=== PATIENT | male | born 1970 | race Caucasian/White ===

== ENCOUNTER 2019-06-16 14:59 | Inpatient (IN) | payer BC ==
[~2019-06-16] VITALS: Ht 162.6 cm; Wt 104.1 kg
[2019-06-16] MEDS ORDERED: NORVASC 2.5 MG2.5 M1 PO (16:10)
[2019-06-16] MEDS ORDERED: FLEXERIL PO (16:12)
[2019-06-16] MEDS ORDERED: DULCOLAX STOOL100 M1 PO (16:13)
[2019-06-16] MEDS ORDERED: ENOXAPARIN40 MG/0.1 SUBQ (16:15)
[2019-06-16] MEDS ORDERED: NEURONTIN 300M300 M2 PO (16:16)
[2019-06-16] MEDS ORDERED: NORCO 5-325 TA1 EAC1 PO (16:18)
[2019-06-16] MEDS ORDERED: GENTLE LAXATIVE5 MG PO (16:53)
[2019-06-16] MEDS ORDERED: LAXATIVE SUPPOS10 MG RECTAL (16:55)
[2019-06-16] MEDS ORDERED: MIRALAX119 GM PO (16:58)
[2019-06-16] MEDS ORDERED: MAG-AL LIQUID30 ML PO (16:58)
[2019-06-16 17:15] VITALS: BP 171/79
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
[2019-06-16 20:10] VITALS: BP 133/86
--- NOTE | 2019-06-17 02:14 | NUR ---
ASSUMED CARE @ 1939-06/16-WEDNESDAY.AWAKE IN BED W/ HOB UP 90 DEGREES[address]CERVICAL CO[address]AR IN PLACE.WATCHING TV.URINALW/IN REACH.SPINAL PRECAUTIONS OBSERVED. PRN FLEXERIL GIVEN W/ PAin med @ 2109.ON HOURLY ROUNDS.FUNERAL DIRECTOR DOING ODD HOUR ROUNDS.
[2019-06-17 04:32] LABS: CALCIUM 8.3 mg/dL (8.5-10.1); CREATININE 0.9 mg/dL (0.6-1.3); POTASSIUM 4.4 mmol/L (3.5-5.1)
[2019-06-17 04:33] LABS: HEMATOCRIT 36.8 % (42.0-52.0); HEMOGLOBIN 12.4 gm/dL (14.0-18.0); MCH 30.3 pg (26.0-34.0); MCHC 33.6 g/dL (28.0-37.0); MPV 8.4 fl. (7.2-11.1); RBC 4.09 mil/uL (4.50-6.00); RDW-CV 13.6 % (10.5-14.5)
--- NOTE | 2019-06-17 05:44 | NUR ---
SLEEPING SINCE 0 & SLEPT GOOD ALL NIGHT.USED URINAL X2.CALLS TO EMPTY URINAL.SEE 2ND PAIN MANAGEMENT @ 0244.LUE UP ON A PILLOW FOR PAIN LUE. REQUESTED VANILLA PUDDING & STRAWBERRY JELLO @ 0250 & ATE ALL @ 0250.WANTS RIGHT LEG SCD & PUT ON @ 0310.
[2019-06-17 08:00] VITALS: BP 136/79
--- NOTE | 2019-06-17 17:16 | NUR ---
ALERT AND ORIENTED X4. UP WITH 1 ASSIST, GAIT BELT AND WALKER. USES PROSTHESIS ON LEFT LOWER LEG. ONLY TOE TOUCH WEIGHTBEARING TO RIGHT LOWER LEG. DRESSING OVER RIGHT UPPER LEG INCISIONS CLEAN DRY AND INTACT. REMAINS ON SPINAL PRECAUTIONS. HAS NECK BRACE ON AT ALL TIMES. HOB ELEVATED GREATER THAN 30 DEGREES WHILE IN BED. PATIENT INSTRUCTED ON SPINAL PRECAUTIONS. INSTRUCTED NO TWISTING/TURNING, LIFTING ARMS ABOVE SHOULDER OR LIFTING ANYTHING GREATER THAN 5 POUNDS. PATIENT C/O ALOT LEFT SHOULDER PAIN. DR NOTIFIED AND XRAY ORDERED. CALL LIGHT WITHIN REACH. FALL PRECAUTIONS IN PLACE, BED ALARM AND CHAIR ALARM USED.
[2019-06-17 19:30] VITALS: BP 152/80
--- NOTE | 2019-06-18 01:09 | NUR ---
ASSUMED CARE @ 1909-06/17-SAT.AWAKE IN BED W/ HOB UP 90 DEGREES W/ CERVICAL COLLAR ONNIECE STAYING ALL NIGHT.BED ALARM PUT ON @ 1909.REFUSED RIGHT LEG SCD THIS EVENING.PRN FLEXERIL GIVEN W/ PAIN MEDS @ 2140.URINAL W/IN REACH.ON HOURLY ROUNDS.PHYSICAL SCIENCE PROFESSOR DOING ODD HOUR ROUNDS,
--- NOTE | 2019-06-18 05:46 | NUR ---
SLEPT LATE @ 49-06/18-WEDNESDAY & SLEEPING GOOD ALL NIGHT.USED URINAL X1 ONLY. SEE 2ND PAIN MANAGEMENT W/ PRN MATEUSZL @ 3784.TOOK ALL VANILLA PUDDING & STRAWBERRY JELLO HS SNACKS.
[2019-06-18 07:59] VITALS: BP 132/79
--- NOTE | 2019-06-18 17:19 | NUR ---
ALERT AND ORIENTED X4. UP WITH 1 ASSIST, GAIT BELT, PROSTHESIS AND WALKER. TOE TOUCH WEIGHTBEARING ON RIGHT LOWER EXTREMITY AND FULL WEIGHT BEARING WITH PROSTHESIS ON LEFT. USEING PO PAIN MEDICATION TO HELP WITH PAIN IN NECK AND RIGHT LEG. NECK BRACE ON AT ALL TIMES. NO C/O NUMBNESS OR TINGLING. USES CALL LIGHT WITHIN REACH. FALL PRECAUTIONS IN PLACE, BED AND CHAIR ALARM USED.
[2019-06-18 19:30] VITALS: BP 169/87
--- NOTE | 2019-06-19 00:40 | NUR ---
ASSUMED CARE @ 1914-06/18-WEDNESDAY.AWAKE IN BED W/CERVICAL COLLAR IN PLACE.HOB UP 90 DEGREES.SON & HIS GIRLFRIEND VISITING.WATCHING BALL GAME.BED ALARTM PUT ON @ 1914.SEE PAIN MANAGEMENT W/ PRN FLEXERIL @ 2132 FOR LEFT SHOULDER PAIN.ICE PACK APPLIED TO LEFT SHOULDER @ 2244.URINAL W/IN REACH.ON HOURLY ROUNDS.MANAGER ONLINE DOING ODD HOUR ROUNDS.
--- NOTE | 2019-06-19 05:17 | NUR ---
SLEPT LATE @ 0045 & SLEEPING GOOD ALL NIGHT.USED URINAL X1 ONLY.NURSE EMPTIES URINAL ONLY DURING NIGHT.TOOK ALL VANILLA & JUAN JOSE.PUDDINGS & TURKEY SANDWICH HS SNACKS.
[2019-06-19 07:57] VITALS: BP 147/82
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
--- NOTE | 2019-06-19 17:54 | NUR ---
SW attempted to meet pt today but pt was with therapy whenever SW was available. Pt lives in apt alone but has girlfriend support. SW to attempt to meet again tomorrow to provide welcome folder and irf frankie consent. SW to continue to follow to assist with safe dc planning.
--- NOTE | 2019-06-19 18:26 | NUR ---
ALERT AND ORIENTED X4. UP WITH 1 ASSIST, GAIT BELT, LEFT LEG PROSTHESIS AND WALKER. HAS DRY DRESSINGS OVER RIGHT HIP INCISIONS. DURABOND OVER NECK INCISION. WEARING NECK BRACE AT ALL TIMES. GETTING SOME PAIN RELIEF WITH ALTERATING PO PAIN MEDICATIONS. SET OFF CHAIR ALARM TODAY X2, DID NOT USE CALL LIGHT AND TRANSFERED SELF TO BED. PATIENT REMINDED TO USE CALL LIGHT FOR HELP WITH TRANSFERS. FALL PRECAUTIONS IN PLACE, BED ALARM AND CHAIR ALARMS.
[2019-06-19 19:10] VITALS: BP 137/76
--- NOTE | 2019-06-19 21:28 | NUR ---
ASSUMED CARE AT 1930. PATIENT RESTING IN BED. CERVICAL COLLAR ON AT ALL TIMES. INCISION TO RIGHT NECK, AND DRESSINGS TO RIGHT HIP C/D/I. VOIDS PER TOILET. HAD BM THIS SHIFT. TAKES PILLS WHOLE WITH WATER. MEDICATED FOR LT SHOULDER PAIN. LT ARM ELEVATED ON PILLOW TO SUPPORT ARM. SPINAL PRECAUTIONS MAINTAINED. TTWB TO RLE, FWB TO LLE WITH PROTHESIS. HAD TURKEY SANDWICH/BOX LUNCH FOR SNACK. TURNS SELF IN BED. HOURLY ROUNDS CONTINUE. BED ALARM ON. CALL LITE IN REACH.
--- NOTE | 2019-06-20 05:28 | NUR ---
SLEPT MOST OF THE NIGHT. VOIDED PER URINAL. ASPEN COLLAR ON AT ALL TIMES. HOB ELEVATED AT LEAST 30 DEGREES. NO C/O PAIN. LT ARM SUPPORTED ON PILLOW ALL NIGHT. TAKES PILLS WITH WATER. TURNS SELF. HOURLY ROUNDS CONTINUE. BED ALARM ON. CALL LITE IN REACH.
[2019-06-20 08:00] VITALS: BP 131/76
--- NOTE | 2019-06-20 15:52 | NUR ---
ASSUMMED CARE OF PT AT 0730, PT ALERT AND ORIENTED, PT C/O NECK PAIN, RIGHT SHOULDER AND ARM PAIN, MEDICATED PER ORDER, ICE APPLIED, C COLLAR ON AT ALL TIMES, SPINAL PRECAUTIONS MAINTAINED, TRANSFERS WITH SBA, GB STAND PIVOT INTO CHAIR, MAINTAINS TTWB UNLESS TRANSFERING PER ORDER, DRESSING CHANGED TO INCISIONS ON RIGHT UPPER LEG, PT HAS OCCASIONAL LOOSE COUGH, ENCOURAGED TO USE IS AND TO DEEP BREATHE, VOIDS PER URINAL, TAKES FOOD AND FLUIDS WELL, PARTCIPATED IN ALL THERAPIES, HAD LUNCH IN DININGROOM, HOURLY ROUNDING COMPLETED, ASSESSMENT COMPLETE, WILL CONTINUE TO MONITOR.
[2019-06-20 19:30] VITALS: BP 139/82
--- NOTE | 2019-06-20 20:30 | NUR ---
RESTING IN BED AND WATCHING TV. HAS LOOSE COUGH. STATES COUGHS UP CLEAR SPUTUM AT TIMES. DENIES DISCOMFORT. ASPEN COLLAR IN PLACE. CALL LIGHT WITHIN REACH.
--- NOTE | 2019-06-21 05:40 | NUR ---
GAVE PAIN MEDICATION AT 2212 FOR COMPLAINT OF PAIN MEDICATION IN NECK AND LEFT SHOULDER WITH RELIEF. USED URINAL X 2 DURING THE NIGHT. HOURLY ROUNDING IN PROGRESS.
[2019-06-21 08:07] VITALS: BP 151/84
--- NOTE | 2019-06-21 16:53 | NUR ---
WATSON and Dr Ortiz met with pt to review team conference summary and plan for pt to remain on rehab unit at least another week with plan to reteam next Wednesday. SW to discuss dc planning with pt family as well and SW will continue to follow to assist with safe dc planning.
[2019-06-21 19:46] VITALS: BP 136/50
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
--- NOTE | 2019-06-22 06:01 | NUR ---
SLEPT MOST OF THE NIGHT. VOIDED PER URINAL TWICE. REPOSITIONS SELF. HOB ELEVATED. WORE ASPEN COLLAR ALL NIGHT. NO FURTHER C/O PAIN. BILAT ARMS SUPPORTED WITH PILLOWS.
[2019-06-22 08:00] VITALS: BP 138/91
--- NOTE | 2019-06-22 16:04 | NUR ---
ASSUMMED CARE OF PT AT 0730, PT ALERT AND ORIENTED, PT COMPLAINS OF PAIN IN BILATERAL SHOULDERS AND NECK GREATER IN LEFT SHOULDER, MEDICATED THIS AM BUT PT DOES NOT WANT TO TAKE FURTHER PAIN MEDICATION, AFRAID HE WILL BECOME DEPENDENT ON IT, DOES NOT WANT TO USE WALKER WITH OT DUE TO PAIN, AND STATES HE GETS SLEEPY WHEN TAKES MUSCLE RELAXANT, PT DOES DRIFT OFF TO SLEEP EASILY THRU OUT SHIFT, DISCUSSED WITH PHYSICIAN AND SHE TALKED WITH HIM ABOUT HIS PAIN AND MEDICATIONS, PT AGREEABLE TO TAKE PAIN MEDS THIS PM, ICE PACK TO LEFT SHOULDER THRU OUT SHIFT, TAKING FOOD AND FLUIDS WELL, VOIDS PER URINAL, PT TRANSFERS WITH ASSIST OF 1, STAND PIVOT WITH PROSTHETIC, DRESSING CHANGED TO UPPER 3 INCISIONS, REDNESS NOTED AROUND INCISION SITE OF MIDDLE 2 INCISIONS, MAINTAINS WEIGHT BEAR STATUS, PARTICIPATED IN ALL THERAPIES, HOURLY ROUNDING COMPLETED, ASSESSMENT COMPLETE, WILL CONTINUE TO MONITOR.
[2019-06-22 20:00] VITALS: BP 132/64
[2019-06-23 05:04] LABS: HEMATOCRIT 35.9 % (42.0-52.0); HEMOGLOBIN 12.1 gm/dL (14.0-18.0); MCHC 33.7 g/dL (28.0-37.0); MPV 8.6 fl. (7.2-11.1); RBC 4.03 mil/uL (4.50-6.00); RDW-CV 13.5 % (10.5-14.5); WBC 12.1 thou/uL (4.0-11.0)
--- NOTE | 2019-06-23 05:09 | NUR ---
ASSUMED CARES AT 1920. ALERT AND ORIENTED. PLEASANT. ASPEN COLLAR ON AT ALL TIMES. C/O PAIN TO LEFT SHOULDER. PAIN MEDS GIVEN NEEDED. ICE PACK GIVEN. USED URINAL AND NURSING EMPTIED. SLEPT OFF AND ON MOST OF THE NIGHT. CALL LIGHT IN REACH AND BED ALARM ON.
[2019-06-23 05:19] LABS: CALCIUM 8.9 mg/dL (8.5-10.1); POTASSIUM 4.5 mmol/L (3.5-5.1)
[2019-06-23 07:38] VITALS: BP 146/83
--- NOTE | 2019-06-23 18:31 | NUR ---
ALERT AND ORIENTED X4. UP WITH STAND BY ASSIST, GAIT BELT, WALKER AND PROSTHESIS TO LEFT LOWER LEG. REMAINS TOE TOUCH WEIGHTBEARING TO RIGHT LOWER LEG. DRESSINGS X2 DRY AND INTACT OVER RIGHT HIP INCISION. USING PO PAIN MEDICATION AND PAIN PATCH TO HELP WITH PAIN. CT SCAN DONE OF LEFT SHOULDER. AWAITING RESULTS. CALL LIGHT WITHIN REACH. FALL PRECAUTIONS IN PLACE WITH CHAIR ALARM AND BED ALARM.
[2019-06-23 20:09] VITALS: BP 132/84
--- NOTE | 2019-06-24 05:07 | NUR ---
ASSUMED CARES AT 1920. ALERT AND ORIENTED. PLEASANT. C/O PAIN TO BACK OF NECK AND LEFT SHOULDER. PAIN MEDS GIVEN. ASPEN COLLAR ON. DRESSINGS TO RIGHT LEG INTACT. USED URINAL. PRODUCTIVE COUGH. ENCOURAGED PT TO USE INCENTIVE SPIROMETER AND TO DEEP BREATHING. SLEPT OFF AND ON. CALL LIGHT IN REACH AND BED ALARM ON.
[2019-06-24 08:00] VITALS: BP 129/89
--- NOTE | 2019-06-24 18:00 | NUR ---
AM ASSESSMENT AND VITAL SIGNS COMPLETED DOCUMENTED. PT TRANSFERS STAND BY ASSIST WITH A WALKER AND HIS PROSTHESIS. ASPEN COLLAR IN PLACE AT ALL TIMES. PT REQUIRED PAIN MEDICATION TWICE THIS SHIFT FOR NECK AND SHOULDER PAIN. FALL PRECAUTIONS AND HOURLY ROUNDING CONTINUE.
[2019-06-24 19:50] VITALS: BP 132/83
--- NOTE | 2019-06-24 20:00 | NUR ---
SITTING UP IN BED WATCHING TV. PAIN MEDICATION GIVEN FOR COMPLAINT OF NECK AND LEFT SHOULDER PAIN RATED "7". TOOK MEDICATIONS WHOLE WITH WATER. TRANSFERRED FROM BED TO WHEELCHAIR WITH SBA AFTER PUTTING PROSTESIS ON, STAND, PIVOT. WHEELED SELF TO THE BATHROOM. USED GRAB BAR TO AID IN TRANSFER FROM WHEELCHAIR TO THE TOILET. VOIDED DARK/YELLOW URINE. CALL LIGHT WITHIN REACH. ASPEND COLLAR IN PLACE.
--- NOTE | 2019-06-25 05:14 | NUR ---
RESTLESS AND ANXIOUS MOST OF THE NIGHT. PATIENT REMOVED ASPEN COLLAR SEVERAL TIMES DURING THE NIGHT. PAIN MEDICINE GIVEN AND FLEXERIL. GOOD RELIEF NOT OBTAINED UNTIL ABOUT 0500. HOURLY ROUNDING IN PROGRESS.
[2019-06-25 08:00] VITALS: BP 122/86
[2019-06-25 19:30] VITALS: BP 130/80
--- NOTE | 2019-06-25 20:10 | NUR ---
SITTING UP IN BED WATCHING TV AND VISITING WITH SON WHO BROUGHT PATIENT FOOD FROM [employer]. PAIN MEDICATION GIVEN FOR COMPLAINT OF PAIN IN NECK AND LEFT SHOULDER. ASPEN COLLAR IN PLACE. URINAL WITHIN REACH. CALL LIGHT WITHIN REACH.
[2019-06-26 04:20] LABS: HEMATOCRIT 35.7 % (42.0-52.0); HEMOGLOBIN 12.2 gm/dL (14.0-18.0); MCH 30.4 pg (26.0-34.0); MCHC 34.1 g/dL (28.0-37.0); MPV 8.6 fl. (7.2-11.1); RBC 4.01 mil/uL (4.50-6.00); RDW-CV 13.6 % (10.5-14.5); WBC 7.6 thou/uL (4.0-11.0)
[2019-06-26 04:43] LABS: CALCIUM 8.4 mg/dL (8.5-10.1); MAGNESIUM 1.9 mg/dL (1.8-2.4); POTASSIUM 4.3 mmol/L (3.5-5.1)
--- NOTE | 2019-06-26 05:30 | NUR ---
RESTED BETTER TONIGHT THAN LAST NIGHT. PAIN UNDER BETTER CONTROL. HOURLY ROUNDING IN PROGRESS.
[2019-06-26 07:52] VITALS: BP 141/93
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
[2019-06-26 19:00] VITALS: BP 148/91
--- NOTE | 2019-06-27 05:22 | NUR ---
ASSUMED CARE AT 1920. ALERT AND ORIENTED. PLEASANT. C/O PAIN TO LEFT NECK/SHOULDER. PAIN MEDS GIVEN NEEDED. DOES HAVE PRODUCTIVE COUGH. ASPEN COLLAR ON. SLEPT OFF AND ON. CALL LIGHT IN REACH AND BED ALARM ON.
[2019-06-27 07:35] VITALS: BP 136/85
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
[2019-06-27 20:30] VITALS: BP 148/86
--- NOTE | 2019-06-28 05:22 | NUR ---
ASSUMED CARES AT 1920. ALERT AND ORIENTED. PLEASANT. OCCASIONAL COUGH. C/O LEFT SHOULDER PAIN. PAIN MEDS GIVEN WELL ICE PACK. ASPEN COLLAR ON AT ALL TIMES. USED URINAL. CALL LIGHT IN REACH AND BED ALARM ON.
[2019-06-28 08:07] VITALS: BP 154/96
--- NOTE | 2019-06-28 16:03 | NUR ---
WATSON and Dr Ortiz met with pt to review team conference summary and plan for pt to remain on rehab unit at least another week and team to reassess pt length of stay during team conference on next Wednesday. SW left message with pt son this morning to try to follow up on dc planning regarding pt eviction notice. WATSON provided resource book and information on homeless fdc hotline and [employer] [place]; SW to discuss with pt but pt was sleeping soundly and did not awaken easily at this time. Pt might need FWW. Ins review response pending. SW to provide another review. SW to continue to follow to assist with safe dc planning.
--- NOTE | 2019-06-28 16:47 | NUR ---
ASSUMMED CARE OF PT AT 0730, PT ALERT AND ORIENTED, TRANSFERS WITH ASSIST OF 1, GB PROSTHETIC WITH A STAND PIVOT, PT C/O PAIN IN LEFT SHOULDER, MEDICATED PER ORDER, LIDOCAINE PATCH ON, ICE TO AREA, PT REQUESTING MEDICATION BEFORE IT IS DUE AND THEN WHEN IT IS TIME PT ASLEEP, IF PT NOT IN THERAPY TENDS TO SLEEP, PT WILL HAVE INJECTION TOMORROW PER DR. HOLLINS, NECK X/R DONE THIS AM, NECK INCISION DERMABONED, HARD COLLAR ON ALL SHIFT, DRESSING INTACT TO RIGHT LEG, TAKING FOOD AND FLUIDS WELL, PARTICIPATED IN ALL THERAPIES, HOURLY ROUNDING COMPLETED ASSESSMENT COMPLETE, WILL CONTINUE TO MONITOR.
[2019-06-28 19:15] VITALS: BP 130/75
--- NOTE | 2019-06-28 19:35 | NUR ---
RESTING QUIELTY IN BED AND WATCHING TV. ASPEN COLLAR IN PLACE. CALL LIGHT WITHIN REACH. URINAL WITHIN REACH. PAIN MEDICATION GIVEN FOR COMPLAINT OF NECK AND LEFT SHOULDER PAIN RATED "6". TOOK MEDICATION WHOLE WITH WATER.
--- NOTE | 2019-06-29 05:19 | NUR ---
LAST GIVEN PAIN MEDS FOR COMPLAINT OF LEFT SHOULDER PAIN AT 0506. SITTING UP IN BED WATCHING TV. HOURLY ROUNDING IN PROGRESS.
[2019-06-29 08:00] VITALS: BP 135/79
[2019-06-29 09:01] VITALS: BP 135/79
--- NOTE | 2019-06-29 16:40 | NUR ---
SW met with pt to follow up about community resources and dc planning and provided completed and fax confirmation for FMLA paperwork. SW encouraged pt to reach out to friends, family for housing options. SW mentioned the [facility] resources book and the homeless assisted hotline and [employer] [place] if no other option at dc. Pt son called pt while SW discussing with pt. SW to continue to follow to assist with safe dc planning.
--- NOTE | 2019-06-29 16:47 | NUR ---
AM ASSESSMENT AND VITAL SIGNS COMPLETED DOCUMENTED. PT CONTINUES TO WORK WITH THERAPIES AND IS PLEASANT AND COOPERATIVE. PRN FLEXERIL AND HYDROCODONE GIVENPER PT REQUEST. FALL PRECAUTIONS AND HOURLY ROUNDING CONTINUE.
--- NOTE | 2019-06-29 19:30 | NUR ---
SITTING UP IN BED TALKING ON HIS CELL AND WATCHING TV. STATES LEFT SHOULDER PAIN AT A "7". FLEXERIL GIVEN. TOO SOON FOR MORE HYDROCODONE. CALL LIGHT AND URINAL WITHIN REACH. ASPEN COLLAR IN PLACE.
[2019-06-29 20:17] VITALS: BP 128/89
--- NOTE | 2019-06-30 05:20 | NUR ---
RESTED ON/OFF. VICODIN AND FLEXERIL GIVEN X 2 WITH RELIEF FOR COMPLAINT OF LEFT SHOULDER PAIN. HAD A LARGE BM BEFORE GOING TO BED. USED URINAL X ONE DURING THE NIGHT. HOURLY ROUNDING IN PROGRESS.
[2019-06-30 08:17] VITALS: BP 124/86
--- NOTE | 2019-06-30 16:52 | NUR ---
I have reviewed the documentation by CONSUELO NEGRETE from 06/30/19 to 06/30/19 and I concur with it. LOS KEENE
--- NOTE | 2019-06-30 18:04 | NUR ---
AM ASSESSMENT AND VITAL SIGNS COMPLETED DOCUMENTED. PT CONTINUES TO REQUIRE PRN PAIN MEDICATIONS FOR SHOULDER PAIN. GRACIA REMOVED FROM THE INCISIONS TO THE RIGHT LEG. FALL PRECAUTIONS AND HOURLY ROUNDING CONTINUE.
[2019-06-30 20:31] VITALS: BP 138/84
--- NOTE | 2019-06-30 23:17 | NUR ---
ASSUMED CARE AT 1930. PATIENT RESTING IN BED. HAD VISITORS AT THE BEGINNING OF THE SHIFT. ASPEN COLLAR ON AT ALL TIMES ALL INCISIONS C/D/I. TTWB RLE. GIVEN PAIN MED AND FLEXARIL AT HS. VOIDS PER URINAL. HOURLY ROUNDS CONTINUE. BED ALARM ON. CALL LITE IN REACH.
--- NOTE | 2019-07-01 05:57 | NUR ---
SLEPT MOST OF THE NIGHT. VOIDED PER URINAL. MEDICATED FOR PAIN AROUND 0030 WITH RETURN TO SLEEP. TURNS SELF. HOURLY ROUNDS CONTINUE. BED ALARM ON. CALL LITE IN REACH.
[2019-07-01 08:21] VITALS: BP 142/95
--- NOTE | 2019-07-01 16:43 | NUR ---
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
[2019-07-01 20:00] VITALS: BP 160/92
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
--- NOTE | 2019-07-02 06:16 | NUR ---
SLEPT MOST OF THE NIGHT. TURNS SELF. VOIDED PER URINAL. HOURLY ROUNDS CONTINUE. BED ALARM ON. CALL LITE IN REACH.
[2019-07-02 08:00] VITALS: BP 117/84
--- NOTE | 2019-07-02 16:33 | NUR ---
ASSUMMED CARE OF PT AT 0730, PT ALERT AND ORIENTED, PT TRANSFERS WITH SBA, GB WALKER, PROSTHETIC, AND MAINTAINS TTWB TO RIGHT LEG, PT AMBULATES INTO BATHROOM, BM X 1, UP IN CHAIR MUCH OF SHIFT, STATES HIS SHOULDER PAIN IS MUCH IMPROVED TODAY, NO REQUESTS FOR ADDITIONAL PAIN MEDICATIONS OTHER THAN SCHEDULED LIDOCAINE PATCH AND IBUPROFEN, TAKING FOOD AND FLUIDS WELL, INCISIONS HEALED TO RIGHT LEG WITH SLIGHT REDNESS NOTED AT HIP INCISION, INCISION TO ANTERIOR NECK HEALED, HARD COLLAR ON ALL SHIFT, HOURLY ROUNDING COMPLETED, ASSESSMENT COMPLETE, WILL COTNINUE TO MONITOR.
[2019-07-02 19:30] VITALS: BP 150/93
--- NOTE | 2019-07-02 21:44 | NUR ---
ASSUMED CARE AT 1930. PATIENT RESTING IN BED. ASPEN COLLAR ON AT ALL TIMES. INCISIONS JANELLE AND C/D/I. TAKES PILLS WHOLE WITH WATER. STATES PAIN IS LESS IN LT SHOULDER. TURNS SELF IN BED. NO C/O PAIN. VOIDED AND HAD BM PER TOILET. UP WITH SBA, GAIT BELT, WALKER, PROTHESIS. MAINTAINS TTWB TO RLE. HOURLY ROUNDS CONTINUE. BED ALARM ON. CALL LITE IN REACH.
--- NOTE | 2019-07-03 00:46 | NUR ---
WENT INTO ROOM TO GIVE MIDNIGHT MEDS. FOUND PATIENT WITH CERVICAL COLLAR OFF DESPITE EDUCATION TO KEEP IT ON AT ALL TIMES. PATIENT STATES THAT "IT HURTS" TO WEAR. PATIENT INSTRUCTED ON NEED TO KEEP THE CERVICAL SPINE IN ALIGNMENT TO PREVENT DAMAGE TO SURGICAL SITE. PATIENT DID PUT COLLAR BACK ON.
--- NOTE | 2019-07-03 05:43 | NUR ---
SLEPT OFF AND ON. VOIDED PER URINAL. NO C/O PAIN. ASPEN COLLAR IN PLACE. HOURLY ROUNDS CONTINUE. BED ALARM ON. CALL LITE IN REACH.
[2019-07-03 08:02] VITALS: BP 151/91
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
[2019-07-03 20:30] VITALS: BP 125/94
--- NOTE | 2019-07-03 20:40 | NUR ---
SITTING UP IN BED AND WATCHING TV. IN GOOD SPIRITS. ASPEN COLLAR IN PLACE. URINAL AND CALL LIGHT WITHIN REACH. PAIN MEDICATION GIVEN FOR COMPLAINT OF LEFT SHOULDER PAIN RATED "5". BOX LUNCH AND SODA PROVIDED PER REQUEST. TAKES MEDICATIONS WHOLE WITH WATER.
--- NOTE | 2019-07-04 05:14 | NUR ---
RESTED ON/OFF. PAIN MEDICATION GIVEN WITH RELIEF. HOURLY ROUNDING IN PROGRESS.
[2019-07-04 08:00] VITALS: BP 129/87
--- NOTE | 2019-07-04 15:43 | NUR ---
ASSUMMED CARE OF PT AT 0730, PT ALERT AND ORIENTED, TRANSFERS WITH SBA GB WALKER, MAINTAINS TTWB ON RIGHT LEG, PT C/O BURNING PAIN IN LEFT SHOULDER, MEDICATED PER ORDERS BUT NOT OBTAINING GOOD PAIN RELIEF, COLD PACKS APPLIED, REPOSTIONED, PT INFORMED TO LET REHAB PHYSICIAN KNOW ABOUT LACK OF PAIN CONTROL ON ROUNDS, PT TAKING FOOD AND FLUIDS WELL, PT VOIDS PER TOILET/URINAL, DID HAVE LUNCH IN DININGROOM, PARTICIPATED IN ALL THERAPIES, HOURLY ROUNDING COMPLETED, ASSESSMENT COMPLETE, WILL CONTINUE TO MONITOR.
[2019-07-04 20:04] VITALS: BP 130/89
--- NOTE | 2019-07-04 20:20 | NUR ---
RESTING QUIETLY IN BED. PAIN MEDICATION GIVEN FOR COMPLAINT OF LEFT SHOULDER PAIN RATED "4". LUNCH BOX SNACK PROVIDED PER REQUEST AND A COLA. URINAL AND CALL LIGHT WITHIN REACH.
--- NOTE | 2019-07-05 04:59 | NUR ---
RESTED ON/OFF. PAIN MEDICATIONS GIVEN FOR LEFT SHOULDER PAIN WITH RELIEF. USED URINAL X ONE DURING THE NIGHT. HOURLY ROUNDING IN PROGRESS.
[2019-07-05 08:33] VITALS: BP 137/80
--- NOTE | 2019-07-05 14:00 | NUR ---
DISCUSSED ELLA CONFERENCE RECOMMENDATION FOR DISCHARGE TOMORROW. HE WILL HAVE HOME HEALTH ORDERED FOR PT/OT. WILL OBTAIN LISTED OF CONTRACTED PROVIDERS FOR HH FOR PT.S INSURANCE AND DISCUSS WITH HIM TOMORROW. HE SAID HIS RIDE WILL BE HERE ABOUT 2PM SO WOULD LIKE TO BE READY TO LEAVE AT THAT TIME. PT.WILL GO HOME ALONE TO [place]. BUT HIS SON LIVES ABOUT 3 BLOCKS AWAY AND CAN ASSIST HIM NEEDED.
--- NOTE | 2019-07-05 18:22 | NUR ---
AM ASSESSMENT AND VITAL SIGNS COMPLETED DOCUMENTED. PT WILL BE DISCHARGED HOME TOMMORROW.
[2019-07-05 19:15] VITALS: BP 143/76
--- NOTE | 2019-07-06 05:14 | NUR ---
ASSUMED PT CARE AT 1920. PT ALERT AND ORIENTED X4, POLITE AND COOPERATIVE WITH CARES. PT GIVEN FLEXERIL FOR LEFT SHOULDER PAIN IN ADDITION TO SCHEDULED PAIN MEDICATIONS. VOIDS PER URINAL. PT SLEPT WELL OVERNIGHT. BED ALARM ON FOR SAFETY. CALL LIGHT IN REACH. HOURLY ROUNDING IN PROGRESS, WILL CONTINUE TO MONITOR.
[2019-07-06 07:48] VITALS: BP 140/88
[2019-07-06] MEDS ORDERED: OXYCONTIN10 M1 PO (09:05)
[2019-07-06] MEDS ORDERED: IBUPROFEN 400400 M2 PO (09:07)
[2019-07-06 11:21] VITALS: BP 135/79
--- NOTE | 2019-07-06 13:02 | NUR ---
FAXED HOME HEALTH REFERRAL TO [facility] [phone]. CONFIRMED WITH BRENT/LIASHERRIE [phone] THAT THEY WILL BE ABLE TO ACCEPT AND SET UP SERVICES ONCE SHE ASSISTS PATIENT WITH ESTABLISHING A PRIMARY CARE PHYSICIAN. ORDERED A STANDARD FRONT WHEELED ROLLING WALKER THROUGH [facility] [phone]. FAXED ORDERS TO SANDRA AT [facility] [phone].
--- NOTE | 2019-07-06 14:25 | NUR ---
AM ASSESSMENT AND VITAL SIGNS COMPLETED DOCUMENTED. PT HAS MET HIS DISCHARGE GOALS. DISCHARGE INSTRUCTIONS AND PRESCRIPTIONS GIVEN TO PATIENT. PT AND BELONGINGS TRANSPORTED TO EXIT, ASSISTED INTO TRUCK AND DISCHARGED HOME IN STABLE CONDITION.
== END 2019-07-06 14:29 | disposition home health service (06) | DRG 551 ==
LOC: M.REH 14:59
PROVIDERS: Family Medicine; Internal Medicine; ADMIT Physical Medicine & Rehabilitation
DX: S12.400A Unspecified displaced fracture of fifth cervical vertebra, initial encounter for closed fracture (principal); S72.91XA Unspecified fracture of right femur, initial encounter for closed fracture; M47.13 Other spondylosis with myelopathy, cervicothoracic region; M47.12 Other spondylosis with myelopathy, cervical region; M51.04 Intervertebral disc disorders with myelopathy, thoracic region; I10 Essential (primary) hypertension; F17.210 Nicotine dependence, cigarettes, uncomplicated; S12.300A Unspecified displaced fracture of fourth cervical vertebra, initial encounter for closed fracture; S12.500A Unspecified displaced fracture of sixth cervical vertebra, initial encounter for closed fracture; M48.03 Spinal stenosis, cervicothoracic region; M48.02 Spinal stenosis, cervical region; D64.9 Anemia, unspecified; V89.2XXA Person injured in unspecified motor-vehicle accident, traffic, initial encounter; Y93.89 Activity, other specified; Y92.89 Other specified places as the place of occurrence of the external cause; Y99.8 Other external cause status; Z89.432 Acquired absence of left foot; Z80.8 Family history of malignant neoplasm of other organs or systems; Z82.49 Family history of ischemic heart disease and other diseases of the circulatory system; Z79.899 Other long term (current) drug therapy